=== PATIENT | male | born 1955 | race Caucasian/White ===

== ENCOUNTER 2025-06-14 09:18 | Inpatient (IN) ==
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
[2025-06-14 09:48] LABS: Base Excess VBG 1.3 mEq/L; HCO3 VBG 29 mmol/L; Oxygen Saturation VBG 63.9 %; PCO2 VBG 57 mmHg (38-50); PO2 VBG 40 mmHg; pH VBG 7.31 (7.36-7.41)
[2025-06-14 09:50] LABS: Hematocrit (blood only) 35.2 % (42.0-52.0); Hemoglobin 11.9 g/dl (14.0-18.0); Immature Granulocytes # (auto) 0.05 K/uL (0.01-0.20); Immature Granulocytes % (auto) 0.4 %; Mean Corpuscular Hemoglobin 29.2 pg (25.0-34.0); Mean Corpuscular Volume 86.5 fL (80.0-100.0); Platelet Count 343 K/uL (130-400); RDW Standard Deviation 40.6 fL (36.4-46.3); Red Blood Count 4.07 M/uL (4.70-6.10); White Blood Count 11.52 K/ul (4.8-10.8)
--- NOTE | 2025-06-14 09:59 | XRay Report ---
EXAM: Radiograph of the Chest 1 View INDICATION: Sepsis TECHNIQUE: Frontal view of the chest. COMPARISON: No relevant prior studies available. FINDINGS: Lungs and pleural spaces: Mild atelectasis left base. No consolidation or pulmonary edema. No pleural effusion or pneumothorax. Heart: Shape and configuration within normal limits allowing for technique. Mediastinum: Normal contour. Bones/joints: Visualized hardware left shoulder grossly intact. No acute osseous abnormality. Soft tissues: No abnormality noted. No radiopaque foreign body noted. Upper abdomen: No abnormality noted. IMPRESSION: Mild atelectasis left base. ACT 112: N/A Electronically signed by Mary Carmen Chamorro 06-14-2025 09:59 AM
[2025-06-14 10:08] LABS: Alanine Aminotransferase 69.0 U/L (7-52); Albumin Level 3.9 gm/dl (3.4-5.0); Alkaline Phosphatase 99.0 U/L (34-104); Anion Gap 11.0 (3-11); Bilirubin,Total 0.5 mg/dl (0.2-1.0); Blood Urea Nitrogen 68.0 mg/dl (6-23); Calcium 9.6 mg/dl (8.6-10.3); Carbon Dioxide 29.0 mmol/L (21-32); Chloride 93.0 mmol/L (98-107); Creatinine Clr Calc Pharmacy 27.3 ml/min; Glucose 141.0 mg/dl (70-99(Fasting)); Magnesium 2.1 mg/dl (1.7-2.4); Potassium 3.3 mmol/L (3.5-5.1); Sodium 133.0 mmol/L (136-145); Total Protein 7.4 gm/dl (6.0-8.3)
[2025-06-14 10:30] LABS: INR 1.1 (0.9-1.1); Partial Thromboplastin Time 26 Seconds (21-31); Prothrombin Time 11.1 Seconds (9.0-12.0)
--- NOTE | 2025-06-14 10:35 | CT Scan Report ---
EXAM: CT Head and Cervical Spine Without Intravenous Contrast INDICATION: Recent neck surgery. Confusion. TECHNIQUE: Axial computed tomography images of the head/brain and cervical spine without intravenous contrast. Sagittal and coronal reformatted images were created and reviewed. This CT exam was performed using one or more of the following dose reduction techniques: automated exposure control, adjustment of the mA and/or kV according to patient size, and/or use of iterative reconstruction technique. COMPARISON: No relevant prior studies available. FINDINGS: Limitations: None. Brain and extra-axial spaces: There is age appropriate cortical atrophy and chronic ischemic periventricular white matter hypodensity. No acute infarct, hemorrhage or mass noted. Sinuses: No layering fluid in the visualized portions of the paranasal sinuses. Mastoid air cells: No mastoid effusion. Orbits: No significant abnormality noted. Vertebrae: Cervical vertebra demineralized. Posterior hardware C3-C7 well-seated and intact. Bone grafting along the rods noted. No fracture. There is grade 1 retrolisthesis of C3 with respect to the levels above and below. Discs/spinal canal/neural foramina: There is near osseous fusion of C5-C6 intervertebral disc. There is moderate to marked degenerative irregularity of the endplates at C4-C5. Moderate narrowing C3-C4 and C6-C7. Patent laminectomy defects at the fusion levels. Artifact limits assessment of the canal. There is a small amount of postoperative swelling and gas cranial to the apex of the left fusion jazz. There is general edema in the operative bed. Soft tissues: No significant abnormality noted. Vasculature: No acute abnormality noted. Lung apices: No significant abnormality noted. Pleural space: No visualized pleural effusion or pneumothorax. IMPRESSION: 1. Postoperative changes posterior C3-C7 spinal fusion. Small amount of air and gas in the operative bed particularly cranial to the proximal tip of the left jazz. 2. Cerebral atrophy. No acute changes. ACT 112: N/A Electronically signed by Mary Carmen Chamorro 06-14-2025 10:35 AM
[2025-06-14] MEDS: SODIUM CHLORIDE 0.9% 1,000 ML IV ONE ×2 (11:05→12:02)
[2025-06-14] MEDS: cefTRIAXone SODIUM 2,000 MG/50 ML BAG IV STA (11:05)
[2025-06-14 11:29] LABS: Appearance Urine Clear (Clear); Bacteria Urine Automated None Seen (None Seen); Cast Urine Automated >20 /lpf (0-2); Epithelial Cell Urine Auto 0-2 /hpf (0-2); Glucose Urine UA Negative (Negative); RBC Urine Automated 0-2 /hpf (0-2); WBC Urine Automated 0-5 /hpf (0-5)
[2025-06-14 11:53] LABS: Amphetamines+Metham, Urine Neg (Neg); MDMA (Ecstacy), Urine Neg (Neg); Marijuana, Urine Neg (Neg)
--- NOTE | 2025-06-14 13:07 | Communication Note ---
Date of Service: June 14, 2025 Attending Addendum: Case reviewed with the advanced practitioner. I have personally performed a history and physical examination on the patient. I have reviewed the advanced practitioner's documentation on the date of service referenced in note, and I agree with, and take responsibility for the plan of care. please refer to her notes for full details patient seen and examined, records reviewed by myself as well on exam, patient seen resting in bed, not in distress on2 L NC, sleeping arousable with tactile stimuli able to carry on conversation but somewhat drowsy, taking time to recall details states neck pain is "decent" denies focal weakness or numbness, fevers/chills states he was not drinking a lot of fluids lately states he takes morphine, hydrocodone PRN as prescribed denies NSAID use, vomiting, diarrhea notes urine output has been less lately has mild L foot pain no other symptoms VS noted and reviewed General- oriented x 2-3, not in distress, drowsy, speaks in sentences with no effort or accessory muscle use Head- atraumatic Eyes- PERRL, EOMI, anicteric ENT- (+) dry oral mucosa, (+) oral thrush Neck- cervical collar in place surgical site posterior neck: incision site well opposed, scabbing, mild surrounding erythema, no bleeding or discharge no tenderness or warmth Lungs- clear to auscultation bilaterally, no rales/wheezes Heart- normal rate, regular rhythm; no murmur, no gallop, no rub appreciated Abdomen- normal bowel sounds, nondistended, soft, nontender, no masses or hepatosplenomegaly Extremities- (+) large nodules distal phalangeal joint R hand, no erythema/warmth/tenderness L foot: MTP joint great toe: swollen, erythematous, mild warmth and mild tenderness, extending to forefoot R foot: enlarged MTP joint R great toe but no erythema, warmth, tenderness Neuro- drowsy, oriented x 2-3; CN 2-12 grossly intact; motor 5/5 bilaterally;sensation 100% on all extremities; no other gross focal neurologic deficits Skin- warm & dry all labs, imaging noted and reviewed ASSESSMENT AND PLAN> LETHARGY LIKELY SECONDARY HYPER-CAPNEIC RESPIRATORY FAILURE ACUTE KIDNEY INJURY, LIKELY PRERENAL, IN THE SETTING OF CHRONIC NARCOTIC USE not drinking enough fluids recently, also on Lasix, Lisinopril arousable, conversant but slow to respond AB.3/57/40/29 UA (+) granular, hyaline cast denies NSAIDs use crea 0.9 as of Jun 09, now 2.7 hold usual Narcotics- morphine and hydrocodone IV NSS at 100cc/hr bipap ordered (was not started until early evening), repeat VBG at 21:00 hold lisinopril, lasix POSSIBLE UNDERLYING MARINA sleep study as outpatient GOUT FLARE, LEFT GREAT TOE Prednisone 20mg po daily x 5-7 days avoiding NSAIDs in light of TORSTEN other chronic medical problems: CAD CHF, [id number] - dry, hold Lasix HTN other diagnoses and plan of care as per advanced practitioner's notes I spent a total of 45 minutes coordinating, documenting, and providing care for this patient, excluding time spent in the performance of separately billed services or time spent by another provider/QHP. Pillo Rm MD
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
[2025-06-14] MEDS ORDERED: ACETAMINOPHEN 325 MG TAB PO PRN (13:23)
[2025-06-14] MEDS ORDERED: NYSTATIN SUSP 500,000 U/5 ML UDC PO ONE (13:30)
[2025-06-14] MEDS: POTASSIUM CHLORIDE CRTAB 20 MEQ TABCR PO STA (13:32)
[2025-06-14] MEDS: LACTATED RINGER'S 1,000 ML IV SCH (13:33)
[2025-06-14] MEDS: NYSTATIN SUSP 500,000 U/5 ML UDC PO SCH (13:53)
--- NOTE | 2025-06-14 14:05 | XRay Report ---
EXAM: Radiographs of the Left Foot Complete 3 Views INDICATION: Pain. Question gout. TECHNIQUE: Frontal, lateral and oblique views of the left foot. COMPARISON: No relevant prior studies available. FINDINGS: Bones/joints: Sclerotic erosive changes noted in the distal head of the first metatarsal. There is moderate surrounding soft tissue swelling and amorphous calcification. There is moderate narrowing of the first metatarsal phalangeal joint with minimal subchondral cystic change at the base of the first proximal phalanx. Possible old fractures of the fifth metatarsal. Soft tissues: Generalized soft tissue swelling noted. No soft tissue gas. IMPRESSION: Abnormalities at the first metatarsophalangeal joint consistent with gout as well as primary osteoarthritis. No pathologic fracture. ACT 112: N/A Electronically signed by Mary Carmen Chamorro 06-14-2025 2:04 PM
[2025-06-14 15:03] LABS: Base Excess VBG 0.8 mEq/L; HCO3 VBG 29 mmol/L; Oxygen Saturation VBG 62.6 %; PCO2 VBG 62 mmHg (38-50); PO2 VBG 42 mmHg; pH VBG 7.28 (7.36-7.41)
[2025-06-14 20:16] LABS: Base Excess VBG 4.2 mEq/L; HCO3 VBG 31 mmol/L; Oxygen Saturation VBG 62.6 %; PCO2 VBG 55 mmHg (38-50); PO2 VBG 37 mmHg; pH VBG 7.36 (7.36-7.41)
[2025-06-14] MEDS: ACETAMINOPHEN 325 MG TAB PO PRN (20:34)
[2025-06-15 04:53] LABS: Base Excess VBG 6.3 mEq/L; HCO3 VBG 33 mmol/L; Oxygen Saturation VBG < 60.0 %; PCO2 VBG 56 mmHg (38-50); PO2 VBG 28 mmHg; pH VBG 7.38 (7.36-7.41)
[2025-06-15 05:00] LABS: Hematocrit (blood only) 31.4 % (42.0-52.0); Hemoglobin 10.9 g/dl (14.0-18.0); Immature Granulocytes # (auto) 0.03 K/uL (0.01-0.20); Immature Granulocytes % (auto) 0.3 %; Mean Corpuscular Hemoglobin 30.5 pg (25.0-34.0); Mean Corpuscular Volume 88.0 fL (80.0-100.0); Platelet Count 293 K/uL (130-400); RDW Standard Deviation 41.7 fL (36.4-46.3); Red Blood Count 3.57 M/uL (4.70-6.10); White Blood Count 8.95 K/ul (4.8-10.8)
[2025-06-15 05:33] LABS: Alanine Aminotransferase 61.0 U/L (7-52); Albumin Globulin Ratio 1.0 (0.9-2); Albumin Level 3.4 gm/dl (3.4-5.0); Alkaline Phosphatase 99.0 U/L (34-104); Anion Gap 8.0 (3-11); Bilirubin,Total 0.4 mg/dl (0.2-1.0); Blood Urea Nitrogen 39.0 mg/dl (6-23); Calcium 9.5 mg/dl (8.6-10.3); Carbon Dioxide 29.0 mmol/L (21-32); Chloride 97.0 mmol/L (98-107); Creatinine Clr Calc Pharmacy 58.0 ml/min; Globulin 3.4 gm/dl (2.5-4.0); Glucose 111.0 mg/dl (70-99(Fasting)); Magnesium 1.8 mg/dl (1.7-2.4); Potassium 3.6 mmol/L (3.5-5.1); Sodium 134.0 mmol/L (136-145); Total Protein 6.8 gm/dl (6.0-8.3)
[2025-06-15] MEDS: LACTATED RINGER'S 1,000 ML IV ONE (06:00)
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
[2025-06-15] MEDS: predniSONE 20 MG TAB PO SCH (09:22)
[2025-06-15] MEDS: ASPIRIN 81 MG ECTAB PO SCH (09:25)
[2025-06-15] MEDS: METOPROLOL SUCC 25MG EXT REL TAB PO SCH (09:25)
--- NOTE | 2025-06-15 11:08 | Discharge Summary ---
Discharge Summary Date of Service June 15, 2025 Principal Dx & Hospital Course #1 = Principal Diagnosis (1) Opiate antagonists causing adverse effect in therapeutic use: (2) CAD (coronary artery disease): (3) Arthritis: (4) Gout: (5) GERD (gastroesophageal reflux disease): (6) Hypertension: (7) Hyperlipidemia: (8) Cellulitis: (9) Acute respiratory acidosis: (10) Amputation of left arm below elbow: (11) Laceration of right hand: Plan The patient is a 69-year-old male who presents to the ED on 06/14/2025 with concerns for altered mental status Acute metabolic encephalopathy: Mild respiratory acidosis: Likely secondary to pain meds, no signs/symptoms of active infection Hold off on all narcotics, patient likely clearing narcotics slowly with TORSTEN Will trial CPAP for 1 hour, repeat ABG/VBG in 1 hour for resolution of acidosis Mentation slowly improving Recent cervical [id number] Cerv[address] collar in place, cervical CT with normal postoperative changes Consult orthospine for further monitoring TORSTEN: - Likely prerenal secondary to dehydration IV fluids, avoid nephrotoxic agents, trend BMP daily Consider nephrology consultation if no improvement Goutleft foot: Prednisone 20 mg daily, avoid allopurinol/colchicine/NSAIDS with TORSTEN Hx HTN/Disastolic CHF w/ preserved EF: Hold lisinopril/HCTZ, furosemide with TORSTEN SBP's in the 90s on arrival; can continue metoprolol in a.m. if blood pressure improves Hx Left above the elbow amputation: Supportive care, can continue opioids once mentation improves A total of 55 minutes was spent on chart review/reviewing diagnostic data/facilitating plan of care/discussion with consultants Full code DVT prophylaxis: Heparin subcu Admission HPI Per Admitting Provider The patient is a 69-year-old male with a past medical history of above elbow left arm amputation, HLD, chronic pain, HTN, gout, diastolic CHF - preserved EF, CAD who recently had a cervical laminectomy at [facility] on June 02, 2025 who presented to the ED on 06/14/25 with complaints of altered mental status and lethargy. The patient's home health care nurse came to assess the patient and he was lethargic and hard to arouse and also confused intermittently. Patient is on chronic opioid therapy including morphine/Vicodin/baclofen. Patient reports he has been taking the medications as prescribed. He also report his neck pain has been fairly controlled postoperatively. On exam, patient is lethargic but arousable, able to answer simple questions but still intermittently confused and slow to respond. He denies any shortness of breath or chest pain. He denies any fever/chills. Denies any nausea/vomiting/diarrhea/abdominal pain. Labs remarkable for WBC 11.5, NA 133, potassium 3.3, chloride 93, creatinine 2.70, glucose 141, AST 53, ALT 69, urinalysis unremarkable VBG with pH of 7.31, CO2 57, O2 40, bicarb 29 Drug screening pending Cervical spine CT showed: 1. Postoperative changes posterior C3-C7 spinal fusion. Small amount of air and gas in the operative bed particularly cranial to the proximal tip of the left jazz. 2. Cerebral atrophy. No acute changes. Chest x-ray with mild atelectasis in the left base Head CT unremarkable Updated Medication List Medication Instructions Recorded Confirmed Type albuterol sulfate 90 mcg/actuation 2 puff inhalation Q4 PRN Cough 12/13/18 06/14/25 History aerosol inhaler (ProAir HFA) desloratadine 5 mg tablet 5 mg PO QPM 12/13/18 06/14/25 History gabapentin 800 mg tablet 800 mg PO TID 12/13/18 06/14/25 History hydrocodone 10 mg-acetaminophen 1 tab PO QID PRN Pain 12/13/18 06/14/25 History 325 mg tablet lisinopril 20 1 tab PO QAM 12/13/18 06/14/25 History mg-hydrochlorothiazide 25 mg tablet morphine 30 mg tablet,extended 30 mg PO TID 12/13/18 06/14/25 History release (MS Contin) omeprazole 20 mg capsule,delayed 20 mg PO QAM 12/13/18 06/14/25 History release aspirin 81 mg tablet,delayed 81 mg PO QAM 12/02/19 06/14/25 History release atorvastatin 80 mg tablet 80 mg PO QPM 12/02/19 06/14/25 History zrwqqpp-cljcdhslf-kmsj 333 mg-133 1 tab PO QAM 12/02/19 06/14/25 History mg-5 mg tablet fluticasone propionate 50 1 spray intranasal BID NASAL 12/02/19 06/14/25 History mcg/actuation nasal CONGESTION spray,suspension metoprolol succinate 25 mg 25 mg PO QAM 12/02/19 06/14/25 History tablet,extended release 24 hr multivitamin 1 tab PO QAM 12/02/19 06/14/25 History baclofen 20 mg tablet 20 mg PO TID 06/14/25 06/14/25 History furosemide 20 mg tablet 20 mg PO QAM 06/14/25 06/14/25 History nitroglycerin 0.4 mg sublingual 0.4 mg sublingual ONCE PRN ATTACK 06/14/25 History tablet Hospital Stay Data Consultations 06/14/25 11:40 ED Decision to Admit Stat 06/14/25 13:00 Consult Orthopedic Spine Surgery Routine Diagnostic Imagining Performed 06/14/25 09:31 CT cervical spine wo con Stat CT head/brain wo con Stat
--- NOTE | 2025-06-15 11:18 | Hospitalist Progress Note ---
Date of Service June 15, 2025 Assessment & Plan (1) Altered mental status: (2) Acute respiratory acidosis: (3) Amputation of left upper extremity above elbow: (4) TORSTEN (acute kidney injury): (5) History of cervical spinal surgery: (6) Gout flare: (7) Oral thrush: Plan Patient is a 69-year-old male with past medical history significant for DMII with diabetic peripheral neuropathy, history of gout, HLD, HTN, moderate nonobstructive CAD per cardiac catheterization in December 2018, diastolic dysfunction, former heavy tobacco use (quit in 1989), GERD, history of amputation of left upper extremity above elbow, generalized osteoarthritis and cervical myelopathy s/p recent C3-C7 laminectomy and posterior spinal fusion with removal of cervical spinal cord stimulator on 06/02/2025 who presented to the ED on 06/14/2025 with concerns for altered mental status. Altered mental status, resolved Acute hypercapnic respiratory acidosis, resolved History of amputation of LUE above elbow c/b phantom limb pain syndrome [facility] - found to be lethargic, hard to arouse and intermittently confused. Suspect presentation likely secondary to baclofen administration in the setting of chronic narcotic therapy. Respiratory acidosis likely secondary to respiratory depression with above multidrug therapy (baclofen, narcotics). Patient reports he has not tolerated baclofen well in the past, has made him extremely confused and lethargic. Mentation much improved this morning, alert and oriented x 3 with conversation. Respiratory acidosis resolved s/p short course of CPAP use. CPAP discontinued. Patient on chronic narcotic therapy with MS Contin 30mg TID, PRN oxycodone 10mg Q4H for severe pain (recently switched from Percocet) HAND ICER. We will avoid muscle relaxants for now. Trial resumption of MS Contin, PRN oxycodone. Will continue to hold gabapentin for now, could try reduced dose tomorrow depending on mentation level with resumption of home pain regimen. Can downgrade to Medr, telemetry benign. No indication at this time for continued telemetry monitoring. Acute kidney injury Suspect prerenal secondary to dehydration, poor oral intake. Creatinine significantly improved s/p IVF. Continue to monitor and avoid nephrotoxic agents as able. Appears Paez catheter placed at time of admission, unclear reasoning at this time. Plan to remove today, bladder scan PRN. Cervical myelopathy s/p recent C3-C7 laminectomy and posterior spinal fusion with removal of cervical spinal cord stimulator on 06/02/2025 Procedure was performed at [facility], operating surgeon Dr. Meier. Patient reportedly worked well with PT/OT during admission at [facility] and was deemed safe to return home. Patient currently living at home with his 94-year-old mother who is soon to be on hospice and having a significantly hard time caring for him. Appreciate PT/OT reevaluation, may need to consider short-term rehab stay depending on patient's performance given his current living situation. Patient states he has not been very ambulatory since being home. Has been using a walker. Gout flare of the first left metatarsal phalangeal joint Avoiding NSAIDs in light of above. Continue prednisone 20mg daily x 5-7 days. Moderate nonobstructive CAD Resume statin therapy, monitor LFTs. Continue ASA. HTN BP remains on softer side. BB resumed. Will continue to hold lisinopril-HCTZ for now - resume as able, creatinine improved. Diastolic dysfunction Continue to hold Lasix for now, patient still on drier take off tender side and BP soft. Will resume as able. Oral thrush Continue Nystatin swish and swallow, monitor progress. Other chronic medical conditions: GERD, seasonal allergies, depression --> Continue home meds for these specific conditions. DVT Prophylaxis: SQ heparin Code Status: FULL CODE PCP: Cari Barlow MD Disposition: Possible discharge home tomorrow pending PT/OT evals. May need to consider short-term rehab. Patient seen in collaboration with Dr. Novoa. Please see addendum. I spent a total of 46 minutes coordinating, documenting, and providing care for this patient excluding time spent in the performance of separately billed services or time spent by another provider/QHP. This included personally reviewing all current laboratories and imaging studies, medical reconciliation, outpatient chart review and discussion with specialists. This chart was completed in part utilizing Speech Voice Recognition Software. Grammatical errors, random word insertions, pronoun errors, and incomplete sentences are an occasional consequence of this system due to software limitations, ambient noise, and hardware issues. Any formal questions or concerns about the content, text, or information contained within the body of this dictation should be directly addressed to the provider for clarification. Admission and Anticipated Discharge Date Admission Date: June 14, 2025 Supervising Physician Co-Signing Physician Notes 69 yo M w/ PMH of T2DM c/b peripheral neuropathy, gout, HLD, HTN, CAD s/p cath december 2018, above elbow LUE amputation c/i w/ concerns AMS. He is being managed for the following: AMS likely w/ baclofen use, now resolved. TORSTEN likely pre renal, now resolved. Recent C spine Sx: ortho spine evaled. f/u w/ ortho spine as OP. Gout flare x first L MTP joint: c/w short course prednisone. reports pain improvement per pt. possible dc jose david, pt/ot eval. total time spent independently: 20 min I have seen and examined the patient and have discussed the case with the provider above. I agree with the assessment and plan as stated. Subjective Patient seen and examined in room 203-1. Alert and oriented x 3. On chronic narcotic therapy for phantom limb pain, history of amputation of left upper extremity above elbow. Admits to not tolerating baclofen well in the past, this has previously made him very confused. Had taken a dose of baclofen the night HAND ICER which he attributes to causing his confusion. Neck pain fairly well- controlled. Having recurrence of phantom limb pain. Review of Systems Review of Systems: At least ten systems reviewed and negative, except as noted in the subjective section. Physical Exam Physical Exam: General: Thin M, NAD, sitting up in bed, A&Ox3, conversing appropriately HEENT: Normocephalic, atraumatic, + C-collar in place, bandaging on posterior neck peeling off, somewhat dry mucous membranes Respiratory: Normal respiratory effort, CTAB Cardiovascular: RRR, normal peripheral pulses, no BLE edema Abdomen/GI: Normal bowel sounds, soft, nontender to palpation in all quadrants : + Paez catheter in place with somewhat dark-yellow urine output Extremities/Musculoskeletal: No cyanosis or clubbing, moves all extremities, + LUE above elbow amputation, L great toe MTP joint appears somewhat swollen but no overlying erythema seen Neurologic: No overt focal deficits, CN's II-XI not formally tested but appear grossly intact bilaterally Results & Data Results & Data Vital Signs (Past 12 Hours) Vital Signs Temp Pulse Pulse Resp BP Pulse Ox O2 Del Method 06/15/25 11:09 36.6 C 74 18 104/62 95 Room Air 06/15/25 07:52 37.0 C 70 19 158/82 H 97 Room Air 06/15/25 02:59 36.9 C 65 18 126/70 96 CPAP 06/15/25 02:26 66 21 98 06/14/25 23:47 89 24 96 FiO2 06/15/25 11:09 06/15/25 07:52 06/15/25 02:59 06/15/25 02:26 21 06/14/25 23:47 21 Laboratory Results Short CBC 06/15/25 Range/Units 04:39 WBC 8.95 (4.8-10.8) K/ul Hgb 10.9 L (14.0-18.0) g/dl Hct 31.4 L (42.0-52.0) % Plt Count 293 (130-400) K/uL BMP 06/15/25 04:39 Sodium 134 L Potassium 3.6 Chloride 97 L Carbon Dioxide 29 BUN 39 H D Creatinine 1.24 D Glucose 111 H Calcium 9.5 Liver Function 06/15/25 Range/Units 04:39 Total Bilirubin 0.4 (0.2-1.0) mg/dl AST 46 H (13-39) U/L ALT 61 H (7-52) U/L Alkaline Phosphatase 99 (34-104) U/L Albumin 3.4 (3.4-5.0) gm/dl
[2025-06-15] MEDS: MoRPHine SULFATE CR 15 MG TABCR PO SCH (14:15)
--- NOTE | 2025-06-15 14:57 | Electrocardiogram Report ---
Test Reason : Blood Pressure : */* mmHG Vent. Rate : 70 BPM Atrial Rate : 70 BPM P-R Int : 152 ms QRS Dur : 78 ms QT Int : 440 ms P-R-T Axes : -3 9 44 degrees QTcB Int : 475 ms Normal sinus rhythm Poor R wave progression, consider anterior OK vs. lead placement vs. LVH Abnormal ECG No previous ECGs available Confirmed by Alvarado Hernandez ([id number]) on 06/15/2025 2:57:19 PM Referred By: REFERRED SELF Confirmed By: Alvarado Hernandez
--- NOTE | 2025-06-15 15:10 | Electrocardiogram Report ---
Test Reason : Blood Pressure : */* mmHG Vent. Rate : 67 BPM Atrial Rate : 67 BPM P-R Int : 182 ms QRS Dur : 72 ms QT Int : 412 ms P-R-T Axes : -1 5 46 degrees QTcB Int : 435 ms Normal sinus rhythm Normal ECG When compared with ECG of 14-Jun-2025 10:46, (unconfirmed) No significant change was found Confirmed by Alvarado Hernandez ([id number]) on 06/15/2025 3:10:04 PM Referred By: REFERRED SELF Confirmed By: Alvarado Hernandez
[2025-06-15] MEDS: ATORVASTATIN 40 MG TAB PO SCH (22:32)
[2025-06-15] MEDS: LORATADINE 10 MG TAB PO SCH (22:32)
[2025-06-15 23:12] VITALS: RESP 16
[2025-06-16 07:19] VITALS: BP 182/86; TEMP 98.6
[2025-06-16 07:23] LABS: Hematocrit (blood only) 33.6 % (42.0-52.0); Hemoglobin 11.4 g/dl (14.0-18.0); Mean Corpuscular Hemoglobin 29.2 pg (25.0-34.0); Mean Corpuscular Volume 86.2 fL (80.0-100.0); Platelet Count 334 K/uL (130-400); RDW Standard Deviation 40.0 fL (36.4-46.3); Red Blood Count 3.90 M/uL (4.70-6.10); White Blood Count 9.63 K/ul (4.8-10.8)
[2025-06-16] MEDS: ESCITALOPRAM OXALATE 20 MG TAB PO SCH (07:36)
[2025-06-16 07:49] LABS: Alanine Aminotransferase 46.0 U/L (7-52); Albumin Globulin Ratio 1.1 (0.9-2); Albumin Level 3.7 gm/dl (3.4-5.0); Alkaline Phosphatase 99.0 U/L (34-104); Anion Gap 6.0 (3-11); Bilirubin,Total 0.5 mg/dl (0.2-1.0); Blood Urea Nitrogen 20.0 mg/dl (6-23); Calcium 9.7 mg/dl (8.6-10.3); Carbon Dioxide 33.0 mmol/L (21-32); Chloride 94.0 mmol/L (98-107); Creatinine Clr Calc Pharmacy 85.8 ml/min; Globulin 3.4 gm/dl (2.5-4.0); Glucose 113.0 mg/dl (70-99(Fasting)); Potassium 3.6 mmol/L (3.5-5.1); Sodium 133.0 mmol/L (136-145); Total Protein 7.1 gm/dl (6.0-8.3)
[2025-06-16 14:22] VITALS: PULSE 64; O2SAT 98
--- NOTE | 2025-06-16 14:36 | Discharge Summary ---
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: (4) TORSTEN (acute kidney injury): (5) History of cervical spinal surgery: (6) Gout flare: (7) Oral thrush: Plan Patient is a 69-year-old male with past medical history significant for DMII with diabetic peripheral neuropathy, history of gout, HLD, HTN, moderate nonobstructive CAD per cardiac catheterization in December 2018, diastolic dysfunction, former heavy tobacco use (quit in 1989), GERD, history of amputa tion of left upper extremity above elbow, generalized osteoarthritis and cervical myelopathy s/p recent C3-C7 laminectomy and posterior spinal fusion with removal of cervical spinal cord stimulator on 06/02/2025 who presented to the ED on 06/14/2025 with concerns for altered mental status. Patient was managed for the following: Altered mental status, resolved Acute hypercapnic respiratory acidosis, resolved History of amputation of LUE above elbow c/b phantom limb pain syndrome Seen by [facility] nurse at home [facility] - found to be lethargic, hard to arouse and intermittently confused. Suspect presentation likely secondary to baclofen administration in the setting of chronic narcotic therapy. Respiratory acidosis likely secondary to respiratory depression with above m ultidrug therapy (baclofen, narcotics). Patient reports he has not tolerated baclofen well in the past, has made him extremely confused and lethargic. Respiratory acidosis resolved s/p short course of CPAP use. CPAP discontinued. Mentation much improved, alert and oriented x 3 with conversation. Back to baseline. Patient on chronic narcotic therapy with MS Contin 30mg TID, PRN oxycodone 10mg Q4H for severe pain (recently switched from Percocet) [employer]. Will avoid muscle relaxants. Patient tolerating resumption of MS Contin, PRN oxycodone. Can resume gabapentin on discharge given improvement in renal function. Education provided on the importance of hydration. Acute kidney injury, resolved Suspect prerenal secondary to dehydration, poor oral intake [employer]. Creatinine improved back to baseline s/p IVF. Again, education provided on the importance of maintaining adequate hydration status. Cervical myelopathy s/p recent C3-C7 laminectomy and posterior spinal fusion with removal of cervical spinal cord stimulator on 06/02/2025 Procedure was performed at [facility], operating surgeon Dr. Meier. Patient reportedly worked well with PT/OT during admission at [facility] and was deemed safe to return home. Patient currently living at home with his 94-year-old mother who has a hard time caring for him. There was initial concern regarding patient's safety if going home without services. However patient reportedly already established with [facility]. PT/OT reevaluation good with patient returning to prior living arrangement with services. Gout flare of the first left metatarsal phalangeal joint Avoiding NSAIDs in light of above. Continue prednisone 20mg daily to complete full 5-day course with EOT on 06/2025. Pain significantly improving. Moderate nonobstructive CAD Continue statin therapy, ASA. HTN BP was on softer side, now improved. Continue BB, lisinopril-HCTZ on discharge. Diastolic dysfunction Can resume Lasix on discharge, was previously held 2/2 dehydration. Oral thrush Continue Nystatin swish and swallow until resolved. Other chronic medical conditions: GERD, seasonal allergies, depression --> Continue home meds for these specific conditions. PCP: Cari Barlow MD Disposition: Patient being discharged home today with services. Patient seen in collaboration with Dr. Novoa. Please see addendum. I spent a total of 50 minutes coordinating, documenting, and providing care for this patient excluding time spent in the performance of separately billed services or time spent by another provider/QHP. This included personally reviewing all current laboratories and imaging studies, medical reconciliation, outpatient chart review and discussion with specialists. This chart was completed in part utilizing Speech Voice Recognition Software. Gr ammatical errors, random word insertions, pronoun errors, and incomplete sentences are an occasional consequence of this system due to software limitations, ambient noise, and hardware issues. Any formal questions or concerns about the content, text, or information contained within the body of this dictation should be directly addressed to the provider for clarification. Notes For Next Care Provider Mr. Munoz was admitted to [facility] with altered mental status and acute hypercapnic respiratory acidosis. Thought secondary to concomitant narcotic use in addition to baclofen. Patient previously did not respond well to baclofen, made him extremely confused and lethargic. Mentation level returned back to baseline with discontinuation of baclofen, respiratory acidosis resolved s/p short course of CPAP. Tolerating home analgesic regimen without issue. Medication Changes From Visit Prednisone for gout flare Nystatin swish and swallow for thrush Baclofen discontinued Admission HPI Per Admitting Provider The patient is a 69-year-old male with a past medical history of above elbow left arm amputation, HLD, chronic pain, HTN, gout, diastolic CHF - preserved EF, CAD who recently had a cervical laminectomy at [place] on June 02, 2025 who presented to the ED on 06/14/25 with complaints of altered mental status and lethargy. The patient's home health care nurse came to assess the patient and he was lethargic and hard to arouse and also confused intermittently. Patient is on chronic opioid therapy including morphine/Vicodin/baclofen. Patient reports he has been taking the medications as prescribed. He also report his neck pain has been fairly controlled postoperatively. On exam, patient is lethargic but arousable, able to answer simple questions but still intermittently confused and slow to respond. He denies any shortness of breath or chest pain. He denies any fever/chills. Denies any nausea/vomiting/diarrhea/abdominal pain. Labs remarkable for WBC 11.5, NA 133, potassium 3.3, chloride 93, creatinine 2.70, glucose 141, AST 53, ALT 69, urinalysis unremarkable VBG with pH of 7.31, CO2 57, O2 40, bicarb 29 Drug screening pending Cervical spine CT showed: 1. Postoperative changes posterior C3-C7 spinal fusion. Small amount of air and gas in the operative bed particularly cranial to the proximal tip of the left jazz. 2. Cerebral atrophy. No acute changes. Chest x-ray with mild atelectasis in the left base Head CT unremarkable Admission Exam Per Admitting Provider General- oriented x 2-3, not in distress, drowsy, speaks in sentences with no effort or accessory muscle use Head- atraumatic Eyes- PERRL, EOMI, anicteric ENT- (+) dry oral mucosa, (+) oral thrush Neck- cervical collar in place surgical site posterior neck: incision site well opposed, scabbing, mild surrounding erythema, no bleeding or discharge no tenderness or warmth Lungs- clear to auscultation bilaterally, no rales/wheezes Heart- normal rate, regular rhythm; no murmur, no gallop, no rub appreciated Abdomen- normal bowel sounds, nondistended, soft, nontender, no masses or hepatosplenomegaly Extremities- (+) large nodules distal phalangeal joint R hand, no erythema/warmth/tenderness L foot: MTP joint great toe: swollen, erythematous, mild warmth and mild tenderness, extending to forefoot R foot: enlarged MTP joint R great toe but no erythema, warmth, tenderness Neuro- drowsy, oriented x 2-3; CN 2-12 grossly intact; motor 5/5 bilaterally;sensation 100% on all extremities; no other gross focal neurologic deficits Skin- warm & dry Discharge Exam General: Thin M, NAD, sitting up in bed, A&Ox3, conversing appropriately HEENT: Normocephalic, atraumatic, + C-collar in place, bandaging on posterior neck intact, moist mucous membranes Respiratory: Normal respiratory effort, CTAB Cardiovascular: RRR, normal peripheral pulses, no BLE edema Abdomen/GI: Normal bowel sounds, soft, nontender to palpation in all quadrants Extremities/Musculoskeletal: No cyanosis or clubbing, moves all extremities, + LUE above elbow amputation, L great toe MTP joint appears somewhat swollen but no overlying erythema seen Neurologic: No overt focal deficits, CN's II-XI not formally tested but appear grossly intact bilaterally Updated Medication List Medication Instructions Recorded Confirmed Type albuterol sulfate 90 mcg/actuation 2 puff inhalation Q4 PRN Cough 12/13/18 06/14/25 History aerosol inhaler (ProAir HFA) desloratadine 5 mg tablet 5 mg PO QPM 12/13/18 06/14/25 History gabapentin 800 mg tablet 800 mg PO TID 12/13/18 06/14/25 History lisinopril 20 1 tab PO QAM 12/13/18 06/14/25 History mg-hydrochlorothiazide 25 mg tablet morphine 30 mg tablet,extended 30 mg PO TID 12/13/18 06/14/25 History release (MS Contin) omeprazole 20 mg capsule,delayed 20 mg PO QAM 12/13/18 06/14/25 History release aspirin 81 mg tablet,delayed 81 mg PO QAM 12/02/19 06/14/25 History release atorvastatin 80 mg tablet 80 mg PO QPM 12/02/19 06/14/25 History [id number] 333 mg-133 1 tab PO QAM 12/02/19 06/14/25 History mg-5 mg tablet fluticasone propionate 50 1 spray intranasal BID NASAL 12/02/19 06/14/25 History mcg/actuation nasal CONGESTION spray,suspension metoprolol succinate 25 mg 25 mg PO QAM 12/02/19 06/14/25 History tablet,extended release 24 hr multivitamin 1 tab PO QAM 12/02/19 06/14/25 History furosemide 20 mg tablet 20 mg PO QAM 06/14/25 06/14/25 History nitroglycerin 0.4 mg sublingual 0.4 mg sublingual ONCE PRN ATTACK 06/14/25 06/14/25 History tablet escitalopram oxalate 20 mg tablet 20 mg PO QAM 06/15/25 06/15/25 History oxycodone 10 mg tablet 10 mg PO Q4H PRN Severe Pain 06/15/25 06/15/25 History (Scale Score 7-10) nystatin 100,000 unit/mL oral 5 ml PO QID #60 mL 06/16/25 Rx suspension prednisone 20 mg tablet 20 mg PO DAILY #3 tabs 06/16/25 Rx Hospital Stay Data Consultations 06/14/25 11:40 ED Decision to Admit Stat 06/14/25 13:00 Consult Orthopedic Spine Surgery Routine Diagnostic Imagining Performed 06/14/25 09:31 CT cervical spine wo con Stat CT head/brain wo con Stat Discharge Instructions Given to Patient (Per Discharging Provider) Please attend your PCP hospital discharge follow-up appointment as outlined below. Date/Time: 06/22/2025 @ 12:20 PM Location: [facility] Provider: Cari Barlow MD Please attend your orthopedic spine surgery follow-up appointment tomorrow at [facility] as previously arranged. MEDICATION CHANGES Prednisone 20mg once daily x 3 more days with end of treatment on 06/19/2025. Start taking tomorrow morning. Continue nystatin swish and swallow for your oral thrush until it is resolved. Baclofen stopped due to your intolerance of this medication. Your home narcotic regimen was resumed. Seek medical attention if you have: * temperature above 101F * chest pain or trouble breathing * abdominal pain, nausea, vomiting * diarrhea, dark stools or bloody stools * any unanswered questions or concerns Call 911 if symptoms are severe. Please take good care of yourself. It has been a pleasure taking care of you. If you have any questions regarding your recent hospitalization please contact [facility] and request Sharon Garcia @ [phone]. Total Time Total Time Spent Total Time Spent (In Minutes): 50 Supervising Physician Co-Signing Physician Notes 69 yo M w/ PMH of T2DM c/b peripheral neuropathy, gout, HLD, HTN, CAD s/p cath december 2018, above elbow LUE amputation c/i w/ concerns AMS. He is being managed for the following: AMS likely w/ baclofen use, now resolved. dc baclofen on dc. TORSTEN likely pre renal, now resolved. Recent C spine Sx: ortho spine evaled. f/u w/ ortho spine as OP. Gout flare x first L MTP joint: c/w short course prednisone. reports significant pain improvement per pt. total time spent independently: 18 min I have seen and examined the patient and have discussed the case with the provider above. I agree with the assessment and plan as stated.
[2025-06-18 15:42] LABS: Hydrocodone Urine 125 ng/mL (<50); Hydromor Urine 503 ng/mL (<50); Noroxycodone Urine NEGATIVE ng/mL (<50); Oxymorph Urine NEGATIVE ng/mL (<50)
== END 2025-06-16 15:24 | disposition home health service (06) | DRG 947 ==
LOC: ED 09:18 → SUATTDRO 11:43 → 2E 11:43 → 3N 06-15 14:24